=== PATIENT | male | born 1980 | race African-American/Black ===

== ENCOUNTER 2023-11-16 20:21 | Inpatient (IN) | payer OTHER ==
[2023-11-16 21:04] VITALS: BMI 27.2
[2023-11-16] MEDS ORDERED: BISMUTH SUBSALICYLATE 524 MG/30 ML PO PRN (22:07)
[2023-11-16] MEDS ORDERED: ACETAMINOPHEN 325 MG TABLET (FP) PO PRN (22:07)
[2023-11-16] MEDS ORDERED: POLYETHYLENE GLYCOL (HEALTHYLAX) 3350 17 GM PACKET PO PRN (22:07)
[2023-11-16] MEDS ORDERED: IBUPROFEN 400 MG TABLET (FP) PO PRN (22:07)
[2023-11-16] MEDS ORDERED: BENZOCAINE/MENTHOL (CHLORASEPTIC ) LOZENGE MM PRN (22:07)
[2023-11-16] MEDS ORDERED: ONDANSETRON *ODT* 4 MG TABLET SL PRN (22:07)
[2023-11-16] MEDS ORDERED: LOPERAMIDE HCL 2 MG CAPSULE PO PRN (22:07)
[2023-11-16] MEDS ORDERED: MAG HYDROX/AL HYDROX/SIMETH 30 ML UNIT-DOSE CUP PO PRN (22:07)
[2023-11-16] MEDS ORDERED: NICOTINE POLACRILEX 2 MG GUM BUC PRN (22:07)
[2023-11-16] MEDS ORDERED: NICOTINE POLACRILEX 2 MG LOZENGE BC PRN (22:07)
[2023-11-16] MEDS ORDERED: guaiFENesin 600 MG TABLET.ER (FP) PO PRN (22:07)
[2023-11-16] MEDS ORDERED: DICYCLOMINE HCL 10 MG CAPSULE PO PRN (22:07)
[2023-11-16] MEDS ORDERED: MAGNESIUM HYDROX 2400MG/30ML ORAL SUSPENSION 30 ML CUP PO PRN (22:07)
[2023-11-16] MEDS ORDERED: BENZONATATE 200 MG CAPSULE PO PRN (22:07)
[2023-11-16] MEDS ORDERED: chlordiazePOXIDE HCL 25 MG CAPSULE PO PRN (22:13)
[2023-11-16] MEDS ORDERED: chlordiazePOXIDE HCL 25 MG CAPSULE ONE (22:56)
[2023-11-16] MEDS: chlordiazePOXIDE HCL 25 MG CAPSULE PO SCH (23:02)
[2023-11-17] MEDS: PRENATAL VITAMINS W/ FOLIC ACID TABLET (FP) PO SCH (10:15)
[2023-11-17 10:26] LABS: HEMATOCRIT 33.4 % (35.4-49); HEMOGLOBIN 10.3 GM/dL (11.7-16.9); MCH 22.1 pg (25.7-33.7); MCHC 30.9 g/dl (32.0-35.9); MEAN CELL VOLUME 71.5 fl (80-96); PLATELET COUNT 70 10^3/uL (134-434); RBC 4.67 M/mm3 (4.00-5.60); RDW 21.8 % (11.9-15.9); WHITE BLOOD COUNT 2.1 K/mm3 (4.0-10.0)
[2023-11-17 11:43] LABS: ALBUMIN 3.1 g/dl (3.4-5.0)
[2023-11-17 11:45] LABS: CREATININE 0.7 mg/dL (0.55-1.3)
[2023-11-17 11:46] LABS: CALCIUM 8.2 mg/dL (8.5-10.1)
[2023-11-17 11:47] LABS: BILIRUBIN,TOTAL 0.7 mg/dL (0.2-1); BLOOD UREA NITROGEN 5.1 mg/dL (7-18)
[2023-11-17] MEDS: IBUPROFEN 600 MG TABLET (FP) PO PRN (17:21)
[2023-11-17] MEDS: MELATONIN 5 MG TABLETS PO SCH (22:12)
[2023-11-17] MEDS: METHOCARBAMOL 500 MG TABLET PO PRN (22:12)
[2023-11-17] MEDS: THIAMINE 100 MG TABLET PO SCH (22:12)
[2023-11-18] MEDS: chlordiazePOXIDE HCL 25 MG CAPSULE PO SCH (05:55)
[2023-11-18] MEDS: hydrOXYzine PAMOATE 25 MG CAPSULE (FP) PO PRN (22:20)
[2023-11-19] MEDS ORDERED: chlordiazePOXIDE HCL 10 MG CAPSULE PO PRN
[2023-11-19] MEDS: chlordiazePOXIDE HCL 10 MG CAPSULE PO SCH (05:40)
[2023-11-20] MEDS: chlordiazePOXIDE HCL 10 MG CAPSULE PO SCH (05:53)
[2023-11-20] MEDS: HYDROCORTISONE 1% TOPICAL CREAM 30 GM TUBE TP SCH (12:20)
[2023-11-20] MEDS: POTASSIUM CHLORIDE ORAL LIQUID 20 MEQ/15 ML PO ONE ×2 (17:44→22:21)
[2023-11-21] MEDS: chlordiazePOXIDE HCL 10 MG CAPSULE PO ONE (05:55)
[2023-11-21 09:13] VITALS: BP 136/74; PULSE 62; RESP 18; TEMP 98.4
[2023-11-21 10:43] LABS: POTASSIUM 3.8 mmol/L (3.5-5.1)
[2023-11-21 10:47] LABS: BLOOD UREA NITROGEN 4.4 mg/dL (7-18)
[2023-11-21 10:50] LABS: CREATININE 0.8 mg/dL (0.55-1.3)
[2023-11-21 11:00] LABS: CALCIUM 9.5 mg/dL (8.5-10.1)
== END 2023-11-21 10:39 | disposition home or self-care (01) | DRG 775 ==
LOC: YASAS 20:21 → Y3N 22:40
PROVIDERS: ADMIT Allergy & Immunology; ATTEND Surgery
PROC: HZ2ZZZZ Detoxification Services for Substance Abuse Treatment (ICD-10-PCS; principal; 2023-11-16)
DX: F10.230 Alcohol dependence with withdrawal, uncomplicated (principal); F17.210 Nicotine dependence, cigarettes, uncomplicated; E87.6 Hypokalemia; R74.01 Elevation of levels of liver transaminase levels; Z56.0 Unemployment, unspecified
CPT/HCPCS: 36415; 80048; 80053; 80305; 80307; 85027; 86780; 93005; 93010

== ENCOUNTER 2024-01-21 16:51 | Inpatient (IN) | payer OTHER ==
[2024-01-21 17:47] VITALS: BMI 28.0
[2024-01-21] MEDS ORDERED: ONDANSETRON *ODT* 4 MG TABLET SL PRN (18:57)
[2024-01-21] MEDS ORDERED: BISMUTH SUBSALICYLATE 524 MG/30 ML PO PRN (18:57)
[2024-01-21] MEDS ORDERED: MAG HYDROX/AL HYDROX/SIMETH 30 ML UNIT-DOSE CUP PO PRN (18:57)
[2024-01-21] MEDS ORDERED: NICOTINE POLACRILEX 2 MG GUM BUC PRN (18:57)
[2024-01-21] MEDS ORDERED: BENZONATATE 200 MG CAPSULE PO PRN (18:57)
[2024-01-21] MEDS ORDERED: POLYETHYLENE GLYCOL (HEALTHYLAX) 3350 17 GM PACKET PO PRN (18:57)
[2024-01-21] MEDS ORDERED: BENZOCAINE/MENTHOL (CHLORASEPTIC ) LOZENGE MM PRN (18:57)
[2024-01-21] MEDS ORDERED: NALOXONE HCL 0.4 MG/ML VIAL IM PRN (18:57)
[2024-01-21] MEDS ORDERED: guaiFENesin 600 MG TABLET.ER (FP) PO PRN (18:57)
[2024-01-21] MEDS ORDERED: IBUPROFEN 400 MG TABLET (FP) PO PRN (18:57)
[2024-01-21] MEDS ORDERED: MAGNESIUM HYDROX 2400MG/30ML ORAL SUSPENSION 30 ML CUP PO PRN (18:57)
[2024-01-21] MEDS ORDERED: NALOXONE (NARCAN) HCL 4 MG/0.1 ML SPRAY NS PRN (18:57)
[2024-01-21] MEDS ORDERED: IBUPROFEN 600 MG TABLET (FP) PO PRN (18:57)
[2024-01-21] MEDS ORDERED: LOPERAMIDE HCL 2 MG CAPSULE PO PRN (18:57)
[2024-01-21] MEDS: METHOCARBAMOL 500 MG TABLET PO PRN (19:50)
[2024-01-21] MEDS: chlordiazePOXIDE HCL 25 MG CAPSULE PO PRN (19:50)
[2024-01-21] MEDS: DICYCLOMINE HCL 10 MG CAPSULE PO PRN (19:50)
[2024-01-21] MEDS: chlordiazePOXIDE HCL 25 MG CAPSULE PO SCH (22:06)
[2024-01-21] MEDS: MELATONIN 5 MG TABLETS PO SCH (22:06)
[2024-01-21] MEDS: hydrOXYzine PAMOATE 25 MG CAPSULE (FP) PO PRN (22:06)
[2024-01-21] MEDS: THIAMINE 100 MG TABLET PO SCH (22:06)
[2024-01-21] MEDS: ACETAMINOPHEN 325 MG TABLET (FP) PO PRN (22:07)
[2024-01-22 06:07] VITALS: RESP 16
[2024-01-22 09:01] LABS: POTASSIUM 3.2 mmol/L (3.5-5.1)
[2024-01-22 09:05] LABS: HEMATOCRIT 35.9 % (35.4-49); MCH 22.4 pg (25.7-33.7); MCHC 30.7 g/dl (32.0-35.9); PLATELET COUNT 67 10^3/uL (134-434); RBC 4.91 M/mm3 (4.00-5.60); RDW 26.8 % (11.9-15.9); WHITE BLOOD COUNT 3.9 K/mm3 (4.0-10.0)
[2024-01-22 09:13] LABS: CALCIUM 8.9 mg/dL (8.5-10.1)
[2024-01-22 09:14] LABS: ALBUMIN 2.8 g/dl (3.4-5.0)
[2024-01-22 09:16] LABS: BLOOD UREA NITROGEN 5.9 mg/dL (7-18)
[2024-01-22 09:17] LABS: CREATININE 0.6 mg/dL (0.55-1.3)
[2024-01-22 09:19] LABS: BILIRUBIN,TOTAL 2.7 mg/dL (0.2-1)
[2024-01-22 09:22] LABS: TOT PROT 7.3 g/dl (6.4-8.2)
[2024-01-22] MEDS: NICOTINE 14 MG/24 HOURS TOPICAL PATCH TD SCH (10:26)
[2024-01-22] MEDS: PRENATAL VITAMINS W/ FOLIC ACID TABLET (FP) PO SCH (10:26)
[2024-01-22 12:49] VITALS: BP 142/83; PULSE 94; TEMP 97.5
[2024-01-23] MEDS ORDERED: chlordiazePOXIDE HCL 25 MG CAPSULE PO SCH (05:00)
[2024-01-24] MEDS ORDERED: chlordiazePOXIDE HCL 10 MG CAPSULE PO PRN
[2024-01-24] MEDS ORDERED: chlordiazePOXIDE HCL 10 MG CAPSULE PO SCH (05:00)
[2024-01-25] MEDS ORDERED: chlordiazePOXIDE HCL 10 MG CAPSULE PO SCH (05:00)
[2024-01-26] MEDS ORDERED: chlordiazePOXIDE HCL 10 MG CAPSULE PO ONE (05:00)
== END 2024-01-23 00:45 | disposition short-term general hospital (02) | DRG 775 ==
LOC: YASAS 16:51 → Y3N 19:04
PROVIDERS: ADMIT Allergy & Immunology; ATTEND Surgery
PROC: HZ2ZZZZ Detoxification Services for Substance Abuse Treatment (ICD-10-PCS; principal; 2024-01-21)
DX: F10.230 Alcohol dependence with withdrawal, uncomplicated (principal); F17.210 Nicotine dependence, cigarettes, uncomplicated; R10.84 Generalized abdominal pain; Z89.021 Acquired absence of right finger(s)
CPT/HCPCS: 36415; 80053; 80305; 80307; 85027; 86780

== ENCOUNTER 2024-01-22 13:08 | Inpatient (IN) | payer OTHER ==
[2024-01-22 14:28] LABS: HEMATOCRIT 37.8 % (35.4-49); HEMOGLOBIN 11.8 GM/dL (11.7-16.9); MCH 22.5 pg (25.7-33.7); MEAN CELL VOLUME 72.3 fl (80-96); MEAN PLT VOLUME 7.8 fl (7.5-11.1); PLATELET COUNT 93 10^3/uL (134-434); RBC 5.23 M/mm3 (4.00-5.60); RDW 27.1 % (11.9-15.9); WHITE BLOOD COUNT 3.6 K/mm3 (4.0-10.0)
[2024-01-22 14:35] LABS: INR 1.12 (0.83-1.09); PROTHROMBIN TIME (PATIENT) 12.8 SEC (9.7-13.0)
[2024-01-22 14:37] LABS: ACTIVATED PTT 30.4 SECONDS (25.2-36.5)
[2024-01-22 14:44] LABS: POTASSIUM 5.3 mmol/L (3.5-5.1)
[2024-01-22] MEDS ORDERED: ACETAMINOPHEN INJECTION 100 ML ONE (14:44)
[2024-01-22] MEDS ORDERED: FAMOTIDINE 20 MG/50 ML IVPB 20 MG/50 ML MG IVPB ONE (14:44)
[2024-01-22] MEDS ORDERED: ONDANSETRON 4 MG/2 ML VIAL ONE (14:44)
[2024-01-22] MEDS ORDERED: morphine SULFATE 4 MG/ML VIAL ONE (14:44)
[2024-01-22 14:45] LABS: CALCIUM 9.1 mg/dL (8.5-10.1)
[2024-01-22 14:46] LABS: BLOOD UREA NITROGEN 5.8 mg/dL (7-18)
[2024-01-22 14:49] LABS: CREATININE 0.8 mg/dL (0.55-1.3)
[2024-01-22 14:50] LABS: BILIRUBIN,TOTAL 3.6 mg/dL (0.2-1); TOT PROT 8.1 g/dl (6.4-8.2)
[2024-01-22] MEDS: SODIUM CHLORIDE 1,000 ML IV STA (15:03)
[2024-01-22] MEDS: FAMOTIDINE 20 MG/50 ML IVPB 20 MG/50 ML MG IVPB ONE (15:03)
[2024-01-22] MEDS: ACETAMINOPHEN 1000 MG/100 ML BAG IVPB ONE (15:03)
[2024-01-22] MEDS: morphine SULFATE 4 MG/ML VIAL IVPUSH ONE (15:04)
[2024-01-22] MEDS: ONDANSETRON 4 MG/2 ML VIAL IVPUSH ONE (15:04)
[2024-01-22 15:32] LABS: ANISOCYTOSIS 2+; MACROCYTOSIS 0
[2024-01-22 15:37] LABS: HIV INTERPRETATION NEGATIVE (NEGATIVE)
[2024-01-22] MEDS: LACTATED RINGERS SOLUTION 1000 ML INFUS.BAG IV ONE ×2 (17:39→19:33)
[2024-01-22] MEDS ORDERED: chlordiazePOXIDE HCL 25 MG CAPSULE ONE ×3 (18:10→18:13)
[2024-01-22] MEDS: chlordiazePOXIDE HCL 25 MG CAPSULE PO ONE (18:22)
[2024-01-22] MEDS ORDERED: MORPHINE SULFATE 2 MG/ML SYRINGE IVPUSH PRN (18:40)
[2024-01-22] MEDS ORDERED: KETOROLAC TROMETHAMINE 15 MG/ML VIAL IVPUSH PRN (18:40)
[2024-01-22] MEDS ORDERED: ONDANSETRON 4 MG/2 ML VIAL IVPUSH PRN (18:43)
[2024-01-22] MEDS ORDERED: LORazepam 1 MG TABLET ONE ×2 (19:11→22:49)
[2024-01-22] MEDS: LORazepam 1 MG TABLET PO SCH (19:38)
[2024-01-22 20:23] LABS: CHOLESTEROL 211 mg/dL (50-200)
[2024-01-22 20:25] LABS: LDL CHOLESTEROL (ONLY SJRH) 104 mg/dL (5-100)
[2024-01-22 20:27] LABS: HDL CHOLESTEROL 55 mg/dL (40-60)
[2024-01-22] MEDS ORDERED: HEPARIN NA (PORCINE) 5,000 UNITS/ML 1ML VIAL SQ SCH (22:00)
[2024-01-22] MEDS ORDERED: THIAMINE 100 MG TABLET ONE (22:49)
[2024-01-22] MEDS: THIAMINE 100 MG TABLET PO SCH (23:05)
[2024-01-22] MEDS: LACTATED RINGERS SOLUTION 1,000 ML/1,000 ML INFUS.BAG IV SCH (23:05)
[2024-01-23 02:19] VITALS: RESP 18; BMI 24.8
[2024-01-23 06:24] VITALS: TEMP 99.1
[2024-01-23 09:18] LABS: BASO % 0.7 % (0-2.0); EOS % 0.6 % (0-4.5); HEMATOCRIT 32.3 % (35.4-49); LYMPH % 19.4 % (8-40); MCH 22.8 pg (25.7-33.7); MEAN CELL VOLUME 73.5 fl (80-96); MEAN PLT VOLUME 7.9 fl (7.5-11.1); MONO % 10.4 % (3.8-10.2); NEUT % 68.9 % (42.8-82.8); PLATELET COUNT 63 10^3/uL (134-434); RBC 4.39 M/mm3 (4.00-5.60); RDW 27.3 % (11.9-15.9); WHITE BLOOD COUNT 3.2 K/mm3 (4.0-10.0)
[2024-01-23 09:31] LABS: POTASSIUM 3.3 mmol/L (3.5-5.1)
[2024-01-23 09:34] LABS: BLOOD UREA NITROGEN 3.6 mg/dL (7-18); CALCIUM 8.1 mg/dL (8.5-10.1)
[2024-01-23 09:38] LABS: CREATININE 0.6 mg/dL (0.55-1.3)
[2024-01-23 09:51] LABS: ALBUMIN 2.4 g/dl (3.4-5.0)
[2024-01-23 09:53] LABS: BILIRUBIN,DIRECT 2.3 mg/dL (0.0-0.2)
[2024-01-23 09:55] LABS: BILIRUBIN,TOTAL 3.1 mg/dL (0.2-1)
[2024-01-23 10:02] LABS: TOT PROT 6.1 g/dl (6.4-8.2)
[2024-01-23] MEDS ORDERED: LORazepam 1 MG TABLET PO PRN (10:15)
[2024-01-23] MEDS: LORazepam 1 MG TABLET PO SCH (10:49)
[2024-01-23] MEDS: FOLIC ACID INJECTION - 1 MG, THIAMINE HCL 100 MG, MULTIVIT INJECTION ADULT 10 ML in SOD... IVPB ONE (11:16)
[2024-01-23] MEDS: MAGNESIUM 2GM/50ML STERILE WATER IVPB IVPB ONE (12:55)
[2024-01-23 14:06] VITALS: BP 145/91; PULSE 87
[2024-01-23] MEDS ORDERED: LACTATED RINGERS SOLUTION 1,000 ML/1,000 ML INFUS.BAG IV SCH (16:00)
[2024-01-23] MEDS: LACTATED RINGERS SOLUTION 1,000 ML/1,000 ML INFUS.BAG IV SCH (19:53)
[2024-01-23] MEDS ORDERED: HEPARIN NA (PORCINE) 5,000 UNITS/ML 1ML VIAL SQ SCH (22:00)
[2024-01-25] MEDS ORDERED: LORazepam 1 MG TABLET PO SCH (05:00)
[2024-01-26] MEDS ORDERED: LORazepam 0.5 MG TABLET PO PRN
[2024-01-26] MEDS ORDERED: LORazepam 0.5 MG TABLET PO SCH (05:00)
[2024-01-27] MEDS ORDERED: LORazepam 0.5 MG TABLET PO ONE (05:00)
== END 2024-01-23 21:12 | disposition left against medical advice (07) | DRG 282 ==
LOC: JER 13:08 → JERBED 16:59 → J8W 01-23 00:09
PROVIDERS: ADMIT Internal Medicine; ATTEND Nurse Practitioner Family
DX: K85.90 Acute pancreatitis without necrosis or infection, unspecified (principal); K83.8 Other specified diseases of biliary tract; I10 Essential (primary) hypertension; F10.20 Alcohol dependence, uncomplicated; F10.230 Alcohol dependence with withdrawal, uncomplicated; R74.01 Elevation of levels of liver transaminase levels
CPT/HCPCS: 36415; 74177-TC; 74181-TC; 76705-TC; 80048; 80053; 80061; 80076; 83690; 83735; 84484; 85025; 85610; 85730; 86803; 87389; 93005; 93010; 99285-25; J0131; Q9967

== ENCOUNTER 2024-02-01 18:22 | Inpatient (IN) | payer OTHER ==
[2024-02-01 19:23] VITALS: BMI 28.7
[2024-02-01] MEDS ORDERED: MAGNESIUM HYDROX 2400MG/30ML ORAL SUSPENSION 30 ML CUP PO PRN (20:12)
[2024-02-01] MEDS ORDERED: POLYETHYLENE GLYCOL (HEALTHYLAX) 3350 17 GM PACKET PO PRN (20:12)
[2024-02-01] MEDS ORDERED: BENZONATATE 200 MG CAPSULE PO PRN (20:12)
[2024-02-01] MEDS ORDERED: LOPERAMIDE HCL 2 MG CAPSULE PO PRN (20:12)
[2024-02-01] MEDS ORDERED: guaiFENesin 600 MG TABLET.ER (FP) PO PRN (20:12)
[2024-02-01] MEDS ORDERED: BENZOCAINE/MENTHOL (CHLORASEPTIC ) LOZENGE MM PRN (20:12)
[2024-02-01] MEDS ORDERED: BISMUTH SUBSALICYLATE 524 MG/30 ML PO PRN (20:12)
[2024-02-01] MEDS ORDERED: NICOTINE POLACRILEX 2 MG LOZENGE BC PRN (20:12)
[2024-02-01] MEDS ORDERED: NICOTINE POLACRILEX 2 MG GUM BUC PRN (20:12)
[2024-02-01] MEDS ORDERED: LORazepam 1 MG TABLET PO PRN (20:14)
[2024-02-01] MEDS: PANTOPRAZOLE 40 MG TABLET PO SCH (22:39)
[2024-02-01] MEDS: THIAMINE 100 MG TABLET PO SCH (22:39)
[2024-02-01] MEDS: MELATONIN 5 MG TABLETS PO SCH (22:39)
[2024-02-01] MEDS: LORazepam 2 MG TABLET PO SCH (22:40)
[2024-02-02] MEDS: DOCUSATE SODIUM 100 MG CAPSULE (FP) PO SCH (10:33)
[2024-02-02] MEDS: PRENATAL VITAMINS W/ FOLIC ACID TABLET (FP) PO SCH (10:33)
[2024-02-02] MEDS: metoPROLOL SUCCINATE 25 MG TAB.SR.24H (FP) PO SCH (10:33)
[2024-02-02] MEDS: FOLIC ACID 1 MG TABLET (FP) PO SCH (10:33)
[2024-02-02] MEDS: ASCORBIC ACID 250 MG TABLET (FP) PO SCH (10:36)
[2024-02-02] MEDS: FERROUS GLUCONATE 324 MG TAB (FP) PO SCH (13:50)
[2024-02-02 13:55] LABS: POTASSIUM 3.1 mmol/L (3.5-5.1)
[2024-02-02 14:00] LABS: ALBUMIN 2.5 g/dl (3.4-5.0); BLOOD UREA NITROGEN 3.8 mg/dL (7-18); CALCIUM 8.2 mg/dL (8.5-10.1)
[2024-02-02 14:03] LABS: CREATININE 0.6 mg/dL (0.55-1.3)
[2024-02-02 14:05] LABS: BILIRUBIN,TOTAL 1.5 mg/dL (0.2-1); TOT PROT 6.8 g/dl (6.4-8.2)
[2024-02-02] MEDS: hydrOXYzine PAMOATE 25 MG CAPSULE (FP) PO PRN (14:32)
[2024-02-02] MEDS: POTASSIUM CHLORIDE ORAL LIQUID 20 MEQ/15 ML PO ONE (14:32)
[2024-02-02] MEDS: IBUPROFEN 400 MG TABLET (FP) PO PRN (17:31)
[2024-02-02] MEDS: SUVOREXANT 10 MG TABLET PO PRN (22:16)
[2024-02-02] MEDS: diphenhydrAMINE HCL 25 MG CAPSULE (FP) PO PRN (22:17)
[2024-02-02] MEDS: METHOCARBAMOL 500 MG TABLET PO PRN (22:17)
[2024-02-03] MEDS: LORazepam 1 MG TABLET PO SCH (05:39)
[2024-02-03] MEDS: chlordiazePOXIDE HCL 25 MG CAPSULE PO SCH ×2 (10:48→17:10)
[2024-02-03 13:47] LABS: ALBUMIN 2.7 g/dl (3.4-5.0)
[2024-02-03 13:50] LABS: BILIRUBIN,DIRECT 1.3 mg/dL (0.0-0.2)
[2024-02-03 13:52] LABS: BILIRUBIN,TOTAL 2.2 mg/dL (0.2-1); TOT PROT 7.3 g/dl (6.4-8.2)
[2024-02-03] MEDS: ONDANSETRON *ODT* 4 MG TABLET SL PRN (14:34)
[2024-02-03] MEDS: MAG HYDROX/AL HYDROX/SIMETH 30 ML UNIT-DOSE CUP PO PRN (17:13)
[2024-02-03] MEDS: DICYCLOMINE HCL 10 MG CAPSULE PO PRN (22:38)
[2024-02-04] MEDS ORDERED: LORazepam 0.5 MG TABLET PO PRN
[2024-02-04] MEDS ORDERED: LORazepam 0.5 MG TABLET PO SCH (05:00)
[2024-02-04] MEDS: chlordiazePOXIDE HCL 10 MG CAPSULE PO SCH (09:28)
[2024-02-05] MEDS ORDERED: LORazepam 0.5 MG TABLET PO ONE (05:00)
[2024-02-05] MEDS: chlordiazePOXIDE HCL 10 MG CAPSULE PO ONE (05:13)
[2024-02-05 13:17] VITALS: BP 142/94; PULSE 75; RESP 17; TEMP 97.5
== END 2024-02-05 13:20 | disposition home or self-care (01) | DRG 775 ==
LOC: YASAS 18:22 → Y3N 21:19
PROVIDERS: ADMIT Allergy & Immunology; ATTEND Surgery
PROC: HZ2ZZZZ Detoxification Services for Substance Abuse Treatment (ICD-10-PCS; principal; 2024-02-01)
DX: F10.230 Alcohol dependence with withdrawal, uncomplicated (principal); F17.210 Nicotine dependence, cigarettes, uncomplicated; F19.282 Other psychoactive substance dependence with psychoactive substance-induced sleep disorder; D64.9 Anemia, unspecified; E87.6 Hypokalemia; I10 Essential (primary) hypertension; K86.0 Alcohol-induced chronic pancreatitis; R74.8 Abnormal levels of other serum enzymes
CPT/HCPCS: 36415; 80053; 80076; 80305; 83690; 84132; Q0162